=== PATIENT | male | born 1965 | race American Indian/Alaskan Native ===

== ENCOUNTER 2019-03-02 23:22 | Emergency (ER) | payer BC ==
[2019-03-02 23:22] VITALS: BMI 46.6
[2019-03-03 04:12] VITALS: BP 106/66; PULSE 82; RESP 18; TEMP 98.2; O2SAT 96
[2019-03-03 04:54] LABS: BLOOD UREA NITROGEN 13 mg/dL (7-21); CALCIUM 9.2 mg/dL (8.4-10.5); GFR NON-AFRICAN AMERICAN > 60
[2019-03-03 05:00] LABS: HEMOGLOBIN 13.4 g/dL (14.0-18.0); MEAN CELL VOLUME 87.7 fl (80.0-105.0); MEAN CORPUSCULAR HEMOGLOBIN 29.3 pg (25.0-35.0); MEAN CORPUSCULAR HGB CONC 33.4 g/dl (31.0-37.0); MEAN PLATELET VOLUME 11.7 fl (7.0-11.0); PLATELET COUNT 217 10^3/uL (120.0-450.0); RBC 4.57 10^6/uL (3.5-6.1); RED CELL DISTRIBUTION WIDTH 13.9 % (11.5-14.5); VENOUS BLOOD GAS BASE EXCESS -0.5 mmol/L (0.0-2.0); VENOUS BLOOD GAS PO2 215 mm/Hg (30-55); VENOUS BLOOD PH 7.44 (7.32-7.43)
[2019-03-03 05:09] LABS: WHITE BLOOD COUNT 26.5 10^3/uL (4.5-11.0)
[2019-03-03 05:20] LABS: BAND 1 % (0-2); LYMPHOCYTE 12 % (22.0-35.0); NEUTROPHIL 82 % (50.0-70.0)
[2019-03-03 05:21] LABS: MONOCYTE 5 % (1.0-6.0); PLATELET ESTIMATE NORMAL (NORMAL)
[2019-03-03 05:33] LABS: URINE BILIRUBIN SMALL (NEGATIVE); URINE BLOOD SMALL (NEGATIVE); URINE GLUCOSE (UA) NEGATIVE (NEGATIVE); URINE LEUKOCYTE ESTERASE SMALL Leu/uL (NEGATIVE); URINE PROTEIN 30 mg/dL (<30 mg/dL); URINE UROBILINOGEN 0.2 E.U./dL (<1 E.U./dL)
[2019-03-03 05:34] LABS: URINE APPEARANCE SL CLOUDY (CLEAR); URINE COLOR YELLOW (YELLOW)
[2019-03-03 05:35] LABS: URINE AMORPHOUS SEDIMENT FEW /hpf; URINE BACTERIA SMALL /hpf; URINE EPITHELIAL CELLS 0 - 2 /hpf (0-5); URINE RBC 0 - 2 /hpf (0-2); URINE WBC 15 - 20 /hpf (0-6)
== END 2019-03-03 02:19 | disposition home or self-care (01) ==
LOC: ED 23:22
DX: N39.0 Urinary tract infection, site not specified (principal)